=== PATIENT | male | born 1945 | race Caucasian/White ===

== ENCOUNTER 2016-11-01 19:45 | Emergency (ER) | payer MEDICARE, OTHER ==
[~2016-11-01] VITALS: Ht 172.7 cm; Wt 81.6 kg
[2016-11-01] MEDS ORDERED: ASPI-605 PO (20:00)
[2016-11-01] MEDS ORDERED: METF10002 PO (20:00)
[2016-11-01] MEDS ORDERED: EMPA25TA PO (20:00)
[2016-11-01] MEDS ORDERED: PRAV80TA21 PO (20:00)
[2016-11-01] MEDS ORDERED: METO50TA3 PO (20:00)
[2016-11-01] MEDS ORDERED: CLOP75TA2 PO (20:00)
[2016-11-01] MEDS ORDERED: LISI-607 PO (20:00)
--- NOTE | 2016-11-01 20:00 | NUR ---
Dr Lee into eval Patient
[2016-11-01 20:10] VITALS: BP 160/90
--- NOTE | 2016-11-01 20:12 | NUR ---
Patient discharged to home in stable conditon. Written and verbal after care instructions given. Patient verbalizes understanding of instructions. with family taking patient home
== END 2016-11-01 20:14 | disposition home or self-care (01) ==
LOC: ER 19:45
DX: I10 Essential (primary) hypertension (principal); E11.9 Type 2 diabetes mellitus without complications; E78.5 Hyperlipidemia, unspecified; I25.10 Atherosclerotic heart disease of native coronary artery without angina pectoris; Z79.82 Long term (current) use of aspirin; Z95.5 Presence of coronary angioplasty implant and graft
CPT/HCPCS: A4663